=== PATIENT | male | born 1980 | race Caucasian/White ===

== ENCOUNTER 2020-11-03 10:47 | Emergency (ER) | payer OTHER, SELFPAY ==
[2020-11-03] VITALS (14 sets, daily range): BP systolic 124–150; BP diastolic 91–122; PULSE 103–120; RESP 16–99; TEMP 36.6–36.9; O2SAT 18–99
--- NOTE | ~2020-11-03 | CT_ITS ---
EXAMINATION: CT brain wo con DATE: 11/03/2020 11:15 INDICATION: Head injury. TECHNIQUE: Computed tomography (CT) of the head was performed without intravenous contrast. The mA wa s adjusted according to patient size. Iterative reconstruction technique was employed. The dose-lengt h product was 681.00 mGy-cm. COMPARISON: None FINDINGS: There is no intracranial hemorrhage, acute infarction, or abnormal intracranial mass lesion . The ventricles are normal in size. There is a right-sided scalp laceration. There is mild mucosal t hickening in the paranasal sinuses. The orbits are normal. The mastoid air cells are normal. IMPRESSION: 1. Normal brain. Reviewed, dictated and finalized at location A. IMPRESSION: 1. Normal brain.
--- NOTE | ~2020-11-03 | CT_ITS ---
EXAMINATION: CT cervical spine wo con DATE: 11/03/2020 11:15 INDICATION: Neck injury. TECHNIQUE: Computed tomography (CT) of the cervical spine was performed without intravenous contrast. Automated exposure control and iterative reconstruction technique were employed. The dose-length pro duct was 529.99 mGy-cm. COMPARISON: None FINDINGS: There are gas-filled diverticula in the right tracheoesophageal groove that likely arise fr om the trachea. There is 3 degrees dextrocurvature of cervical spine. Bone alignment is normal. Verte bral body heights are normal. There is mildly decreased disc height at C3-C4 and moderately decreased disc height at C4-C5. There is ossification of posterior longitudinal ligament intermittently from C 3 to C5. The following disc levels are specifically discussed: C2-C3: There is mild left uncovertebral joint osteoarthritis. There is no facet joint osteoarthritis. There is mild left neural foraminal stenosis. There is no central canal stenosis. C3-C4: There is mild right and moderate left uncovertebral joint osteoarthritis. There is mild bilate ral facet joint osteoarthritis. There is mild right and moderate left neural foraminal stenosis. Ther e is mild central canal stenosis. C4-C5: There is severe bilateral uncovertebral joint osteoarthritis. There is no facet joint osteoart hritis. There is moderate bilateral neural foraminal stenosis. There is mild central canal stenosis. C5-C6: There is no uncovertebral joint osteoarthritis. There is mild left facet joint osteoarthritis. There is no neural foraminal stenosis. There is no central canal stenosis. C6-C7: There is no uncovertebral joint osteoarthritis. There is mild bilateral facet joint osteoarthr itis. There is no neural foraminal stenosis. There is no central canal stenosis. C7-T1: There is no uncovertebral joint osteoarthritis. There is severe bilateral facet joint osteoart hritis. There is mild left neural foraminal stenosis. There is no central canal stenosis. IMPRESSION: 1. No fracture. 2. Moderate cervical spondylosis. Reviewed, dictated and finalized at location A.
--- NOTE | ~2020-11-03 | CT_ITS ---
EXAMINATION: [facility] DATE: 11/03/2020 12:18 INDICATION: Injury of the chest, abdomen, and back. Fall from roof. TECHNIQUE: Computed tomography (CT) of the chest, abdomen, pelvis, thoracic spine, and lumbar spine w as performed with 100 mL Omnipaque 350 intravenous contrast. Automated exposure control and iterative reconstruction technique were employed. The dose-length product was 1663.32 mGy-cm. COMPARISON: Lumbar spine MRI 10/17/2011 FINDINGS: CT CHEST: There are diverticula in the right tracheoesophageal groove, likely arise from the trachea. There is mild atelectasis bilaterally. No pleural effusion. The heart size is normal. No pericardial effusion. There is gas in some veins, likely from IV injection. The aorta is normal. CT ABDOMEN AND PELVIS: The liver, gallbladder, spleen, pancreas, adrenal glands, are normal. There is a 5 mm stone in right kidney. There is a 2 mm stone in left kidney. There are no dilated loops of oskar wel. There are changes of appendectomy. There are no pathologically enlarged lymph nodes. There is no free intraperitoneal fluid. There is bilateral sacroiliitis, which may be seen with ankylosing spond ylitis or enteropathy associated arthritis. CT THORACIC SPINE: Bone alignment is normal. There is mild chronic anterior wedging of T11 and T12 ve rtebral bodies. There are Schmorl's nodes at T8-T9 and T11-T12. There is moderately decreased disc he ight at T8-T9. There is mildly decreased disc height at many levels in mid and lower thoracic spine. At T8-T9, there is mild central canal stenosis. There is multilevel facet joint osteoarthritis, sever e bilaterally at T5-T6. There is multilevel mild neural foraminal stenosis bilaterally. CT LUMBAR SPINE: There is 4 degrees levocurvature of lumbar spine. Vertebral body heights are normal. Intervertebral disc heights are normal. The following disc levels are specifically discussed: L1-L2: The disc does not extend beyond the endplate margin. There is mild bilateral facet joint osteo arthritis. There is no neural foraminal stenosis. There is no central canal stenosis. L2-L3: The disc does not extend beyond the endplate margin. There is mild bilateral facet joint osteo arthritis. There is no neural foraminal stenosis. There is no central canal stenosis. L3-L4: The disc is bulging. There is moderate bilateral facet joint osteoarthritis. There is mild chantel ateral neural foraminal stenosis. There is mild central canal stenosis. L4-L5: The disc is bulging. There is moderate right and severe left facet joint osteoarthritis. There is mild bilateral neural foraminal stenosis. There is mild central canal stenosis. L5-S1: The disc is bulging. There is severe right and moderate left facet joint osteoarthritis. There is mild right and moderate left neural foraminal stenosis. There is mild central canal stenosis. IMPRESSION: 1. No posttraumatic findings. 2. Mild thoracic and lumbar spondylosis. Reviewed, dictated and finalized at location A.
--- NOTE | ~2020-11-03 | XR_ITS ---
EXAMINATION: XR knee LT 3V DATE: 11/03/2020 12:16 INDICATION: Left knee injury and pain. TECHNIQUE: 3 views of left knee were obtained. COMPARISON: None. FINDINGS: Bone alignment is normal. No fracture. Joint spaces are normal. There is a small knee joint effusion. IMPRESSION: 1. Small knee joint effusion. Reviewed, dictated and finalized at location A.
--- NOTE | ~2020-11-03 | XR_ITS ---
EXAMINATION: XR knee RT 3V DATE: 11/03/2020 12:16 INDICATION: Right knee injury and pain. TECHNIQUE: 3 views of right knee were obtained. COMPARISON: None. FINDINGS: Bone alignment is normal. No fracture. There is mild osteoarthritis of medial and lateral c ompartments characterized by tiny marginal osteophytes. There is no knee joint effusion. IMPRESSION: 1. Mild right knee osteoarthritis. Reviewed, dictated and finalized at location A.
[2020-11-03 12:00] LABS: Estimated CRCL calculation 77 ml/min; Estimated Glomerular Filt Rate > 60
[2020-11-03 12:12] LABS: Basophils Percent Auto 0.2 % (0.2-1.2); Eosinophils Percent Auto 0.1 % (0-4.4); Hematocrit 50.8 % (42.0-52.0); Immature Granulocyte Absolute 0.06 K/mm3 (0.00-0.031); Immature Granulocyte Percent A 0.7 % (0-0.5); Lymphocytes Absolute Auto 1.31 K/mm3 (0.9-3.2); Lymphocytes Percent Auto 14.6 % (18.3-44.2); Mean Corpuscular HGB Conc 33.5 g/dl (32-36); Mean Corpuscular Hemoglobin 29.7 pg (26-34); Mean Corpuscular Volume 88.7 fl (80-100); Mean Platelet Volume 10.9 fl (7.4-10.4); Monocytes Absolute Auto 0.6 K/mm3 (0.1-0.6); Monocytes Percent Auto 6.9 % (2.6-8.5); Neutrophils Percent Auto 77.5 % (45.5-73.1); Platelet Count Result 252 k/mm3 (150-375); Red Blood Count 5.73 M/mm3 (4.6-6.20); Red Cell Distribution Width 12.6 % (11.5-14.5)
[2020-11-03] MEDS: TETANUS,DIPHTHERIA,AC PERTUSSIS ADULT (0.5 ML) BOOSTRIX IM (12:20)
[2020-11-03 12:22] LABS: Alanine Aminotransferase 39 U/L (4-50); Albumin Level 5.1 g/dL (3.5-5.1); Alkaline Phosphatase 67 U/L (38-126); Anion Gap 13 mmol/L (8-16); Aspartate Amino Transferase 33 U/L (17-59); Bilirubin,Total 0.9 mg/dL (0.2-1.3); Blood Urea Nitrogen 15 mg/dL (9-20); Calcium 10.4 mg/dL (8.4-10.2); Carbon Dioxide 23 mmol/L (22-30); Chloride 102 mmol/L (98-107); Estimated CRCL calculation 77 ml/min; Estimated Glomerular Filt Rate > 60; Glucose 150 mg/dL (65-110); Potassium 3.9 mmol/L (3.4-5.0); Sodium 138 mmol/L (137-145)
--- NOTE | 2020-11-03 13:23 | ED.FALL ---
HPI - Fall General Chief Complaint: Fall Stated Complaint: Fall off roof Time Seen by Provider: 11/03/20 11:25 History of Present Illness HPI Narrative: 40-year-old male Generally in good health Discussed with standing on top of a pole barn about 16 feet in the air while trusses were being lowered onto it with a aldana There was some type of incident with the band holding one of the trusses as it was placed and it collapsed onto the other ones creating kind of a william effect which led to the trusses all being knocked down followed by the falling down of the structure Patient was trying to get off the top of this when he saw what happened but wound it sounds like writing one of the felix to the ground as it fell and he thinks he probably hit his head on one of the pieces of wood None of the timber landed on him or entrapped him He has a large head laceration, some general soreness, and scrapes on both of his knees Did not lose consciousness, he does not have neck pain, he does not have any chest pain or shortness of breath, he does mention that he has been having flank pain which she relates to a kidney stone that he knows he has, he does not have any focal neurologic symptoms such as numbness or weakness Related Data Allergies Allergy/AdvReac Type Severity Reaction Status Date / Time No Known Allergies Allergy Mild Verified 05/09/09 18:44 Review of Systems Review of Systems: All systems reviewed & are unremarkable except as noted in HPI and below Constitutional: Constitutional: Reports no additional constitutional complaints, Denies chills, Denies fever(s) and Denies headache(s) Eyes: Eyes: Reports no additional eye complaints and Denies change in vision ENT: Denies headache(s) and Denies sore throat Cardiovascular: Cardiovascular: Denies chest pain and Denies dyspnea Respiratory: Respiratory: Denies cough and Denies dyspnea Gastrointestinal: Gastrointestinal: Denies abdominal pain, Denies diarrhea and Denies vomiting Genitourinary: Genitourinary: Denies dysuria and Denies urinary frequency Comments: Flank pain Musculoskeletal: Musculoskeletal: Denies deformity, Reports arthralgias, Reports joint swelling and Denies numbness Integumentary/Breasts: Skin/Breast: Denies rash and Denies wounds Neurologic: Denies headache(s), Denies focal weakness and Denies numbness Psychiatric: Psychiatric: Reports no additional psychiatric complaints Endocrine: Endocrine: Reports no additional endocrine complaints Hematologic/Lymphatic: Hematologic/Lymphatic: Reports no additional hematologic/lymphatic complaints Allergic/Immunologic: Allergic/Immunologic: Reports no additional allergic/immunologic complaints Exam Const: General: cooperative, healthy appearing, no acute distress and alert Orientation/consciousness: patient oriented x3 (alert) HENMT: Head: normocephalic, atraumatic, contusion and laceration Ears: external ears normal and TM's normal bilaterally Other: 11 cm right frontal linear laceration extending from the forehead through the hairline and into the subcu, galea is intact Eyes: Conjunctivae: conjunctivae normal Pupils: Equal, round and reactive pupils present EOM: EOMs intact bilaterally Other: No facial bone tenderness Neck: Neck: normal visual inspection, supple and no JVD Other: Patient is placed in a cervical collar, denies any midline tenderness, denies any paraspinous tenderness Chest: Chest palpation & inspection: normal inspection of the chest and no tenderness Resp: Effort & Inspection: normal respiratory effort and not labored Auscultation: clear to auscultation bilaterally, no rales, no rhonchi, no wheezes and other (BS =) Cardio: Rate: regular rate Rhythm: regular rhythm Heart sounds: no murmurs GI: GI Palp: Yes Soft to palpation, No Tenderness to palpation present (GI), No Guarding due to palpation present (GI) and No Rebound tenderness present Back/Spine/Pelvis: Other: No tenderness i
--- NOTE | 2020-11-03 13:35 | PC.NURSE ---
C collar removed per EDP William approval
== END 2020-11-03 15:25 | disposition home or self-care (01) ==
PROVIDERS: Emergency Medicine; Emergency Provider Emergency Medicine; PCP Internal Medicine
DX: S01.01XA Laceration without foreign body of scalp, initial encounter (principal); S40.011A Contusion of right shoulder, initial encounter; S80.02XA Contusion of left knee, initial encounter; S80.01XA Contusion of right knee, initial encounter; Z23 Encounter for immunization; M47.812 Spondylosis without myelopathy or radiculopathy, cervical region; M17.11 Unilateral primary osteoarthritis, right knee; M47.816 Spondylosis without myelopathy or radiculopathy, lumbar region; W13.2XXA Fall from, out of or through roof, initial encounter
CPT/HCPCS: 12004; 12015; 70450; 71260; 72125; 72129; 72132; 73562; 74177; 80053; 85025; 90471; 90715; 99284; Q9967